=== PATIENT | male | born 1945 | race Caucasian/White ===

== ENCOUNTER 2018-09-23 22:24 | Observation (INO) | payer MEDICARE, BC ==
[2018-09-23 22:52] LABS: ABS Eosinophils 0.1 10^3/ul (0-0.6); ABS Monocytes 0.7 10^3/ul (0-0.8); ABS Neutrophils 2.6 10^3/ul (1.5-7.7); Eosinophil % 1.3 %; Hematocrit 33 % (42-52); Hemoglobin 11.4 g/dL (14.0-18.0); Lymphocyte % 23.3 %; Mean Corpuscular HGB Conc 34 g/dL (31-36); Mean Corpuscular Hemoglobin 34 pg (27-31); Mean Corpuscular Volume 98 fL (80-94); Mean Platelet Volume 9.1 fL (7.4-10.4); Platelet Count 115 10^3/uL (150-450); Red Cell Distribution Width 15 % (10-15); White Blood Count 4.3 10^3/uL (3.5-10.8)
[2018-09-23 22:57] LABS: INR 1.06 (0.82-1.09)
[2018-09-23 23:10] LABS: Albumin 4.1 g/dL (3.2-5.2); Albumin/Globulin Ratio 1.5 (1-3); BUN/Creatinine Ratio 21.7 (8-20); Calcium 9.5 mg/dL (8.6-10.3); EGFR African American 42.5 (>60); EGFR Non-African American 35.1 (>60); Globulin 2.8 g/dL (2-4); Total Bilirubin 0.4 mg/dL (0.2-1.0); Total Protein 6.9 g/dL (6.4-8.9)
[2018-09-23 23:12] LABS: Potassium 5.5 mmol/L (3.5-5.0); Troponin I 0.01 ng/mL (<0.04)
[2018-09-24] MEDS ORDERED: Diazepam SYRINGE* 5 MG/ML 2 ML SYRINGE (10 MG total) IV ONE (01:32)
[2018-09-24] MEDS ORDERED: Aspirin 81 mg CHEW TAB* 81 MG TAB.CHEW PO ONE (01:39)
--- NOTE | 2018-09-24 01:42 | ED ---
HPI Chest Pain - HPI Summary HPI Summary: 73 year old M presents to [facility] with a chief complaint of episodic minor chest pain since 1000 tonight (09/23/18). Patient reports he took a nitroglycerin pill after 1st episode of chest pain which is describes as "gaseous and indigestion" on the left side of his chest. Patient reports that the pain from episode at 1000 went away before nitroglycerin intake and then came again in the waiting room several hours ago which lasted 5 minutes or less in length. Patient reports he had a heart attack in 2010 after which he got 4 stents and that he has a defibrillator since 2010 due to a weak heart. Patient reports neck pain/ stiffness in waiting room. Patient takes baby aspirin every morning but denies use of Plavix. Patients retirement specialist is Dr. Jay. Symptoms aggravated by nothing. Symptoms alleviated by nothing. - History of Current Complaint Chief Complaint: EDChestPainROMI Time Seen by Provider: 09/24/18 01:30 Hx Obtained From: Patient Onset/Duration: Started Days Ago - 1 Timing: Intermittent - 5 minutes, Lasting Minutes - 5 Pain Intensity: 0 Pain Scale Used: 0-10 Numeric Aggravating Factor(s): Nothing Alleviating Factor(s): Nothing Associated Signs and Symptoms: Positive: Other: - positive - neck pain - Allergy/Home Medications Allergies/Adverse Reactions: Allergies Allergy/AdvReac Type Severity Reaction Status Date / Time Penicillins Allergy Intermediate Hives Verified 09/24/18 00:28 PMH/Surg Hx/FS Hx/Imm Hx Endocrine/Hematology History: Denies: Hx Diabetes Cardiovascular History: Denies: Hx Hypertension Respiratory History: Reports: Other Respiratory Problems/Disorders - pt of [place], PFTs showed a "few spots", but no conditions present History: Denies: Hx Renal Disease Musculoskeletal History: Reports: Hx Back Problems Neurological History: Reports: Other Neuro Impairments/Disorders - PAIN CL[facility]IC PT - Cancer History Cancer Type, Location and Year: 1993 years ago NHL, 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 LAMENECTOMY Infectious Disease History: No Infectious Disease History: Denies: Traveled Outside the [place] in Last 30 Days - Family History Known Family History: Positive: Other - colon cancer - Social History Alcohol Use: Rare Alcohol Amount: 1 Substance Use Type: Reports: None Smoking Status (MU): Never Smoked Tobacco Review of Systems Negative: Fever Positive: Chest Pain Musculoskeletal: Other - positive - neck pain All Other Systems Reviewed And Are Negative: Yes Physical Exam - Summary Physical Exam Summary: VITAL SIGNS: Reviewed. GENERAL: Patient is a well-developed and nourished MALE who is lying comfortable in the stretcher. Patient is not in any acute respiratory distress. HEAD AND FACE: No signs of trauma. No ecchymosis, hematomas or skull depressions. No sinus tenderness. EYES: PERRLA, EOMI x 2, No injected conjunctiva, no nystagmus. EARS: Hearing grossly intact. Ear canals and tympanic membranes are within normal limits. MOUTH: Oropharynx within normal limits. NECK: Supple, trachea is midline, no adenopathy, no JVD, no carotid bruit, no c- spine tenderness, neck with full ROM CHEST: Symmetric, no tenderness at palpation LUNGS: Clear to auscultation bilaterally. No wheezing or crackles. CVS: Regular rate and rhythm, S1 and S2 present, no murmurs or gallops appreciated. ABDOMEN: Soft, non-tender. No signs of distention. No rebound no guarding, and no masses palpated. Bowel sounds are normal. EXTREMITIES: FROM in all major joints, no edema, no cyanosis or clubbing. NEURO: Alert and oriented x 3. No acute neurological deficits. Speech is normal and follows commands. SKIN: Dry and warm Triage Information Reviewed: Yes Vital Signs On Initial Exam: Initial Vitals Temp Pulse Resp BP Pulse Ox 97.8 F 68 18 94/58 100 09/23/18 22:27 09/23/18 22:27 09/23/18 22:27 09/23/18 22:27 09/23/18 22:27 Vital Signs Reviewed: Yes Diagnostics - Vital Signs Vital Signs Temp Pulse Resp BP Pulse Ox 09/24/18 01:00 66 19 98 09/24/18 00:51 65 16 99/65 98 09/24/18 00:21 61 17 96/60 99 09/24/18 00:14 98.3 F 62 16 87/59 99 09/23/18 22:27 97.8 F 68 18 94/58 100 - Laboratory Lab Results: Lab Results 09/23/18 09/23/18 09/23/18 Range/Units 22:44 22:44 22:44 WBC 4.3 (3.5-10.8) 10^3/uL RBC 3.40 L (4.18-5.48) 10^6 /uL Hgb 11.4 L (14.0-18.0) g/dL Hct 33 L (42-52) % MCV 98 H (80-94) fL MCH 34 H (27-31) pg MCHC 34 (31-36) g/dL RDW 15 (10-15) % Plt Count 115 L (150-450) 10^3/uL MPV 9.1 (7.4-10.4) fL Neut % (Auto) 59.9 % Lymph % (Auto) 23.3 % [place] % (Auto) 15.2 % Eos % (Auto) 1.3 % Baso % (Auto) 0.3 % Absolute Neuts (auto) 2.6 (1.5-7.7) 10^3/ul Absolute Lymphs (auto) 1.0 (1.0-4.8) 10^3/ul Absolute Monos (auto) 0.7 (0-0.8) 10^3/ul Absolute Eos (auto) 0.1 (0-0.6) 10^3/ul Absolute Basos (auto) 0.0 (0-0.2) 10^3/ul Absolute Nucleated RBC 0.0 10^3/ul Nucleated RBC % 0.0 INR (Anticoag Therapy) 1.06 (0.82-1.09) Sodium 138 (135-145) mmol/L Potassium 5.5 H (3.5-5.0) mmol/L Chloride 105 (101-111) mmol/L Carbon Dioxide 26 (22-32) mmol/L Anion Gap 7 (2-11) mmol/L BUN 41 H (6-24) mg/dL Creatinine 1.89 H (0.67-1.17) mg/dL Est GFR ( Amer) 42.5 (>60) Est GFR (Non-Af Amer) 35.1 (>60) BUN/Creatinine Ratio 21.7 H (8-20) Glucose 113 H (70-100) mg/dL Calcium 9.5 (8.6-10.3) mg/dL Total Bilirubin 0.40 (0.2-1.0) mg/dL AST 60 H (13-39) U/L ALT 45 (7-52) U/L Alkaline Phosphatase 80 (34-104) U/L Troponin I 0.01 (<0.04) ng/mL Total Protein 6.9 (6.4-8.9) g/dL Albumin 4.1 (3.2-5.2) g/dL Globulin 2.8 (2-4) g/dL Albumin/Globulin Ratio 1.5 (1-3) Result Diagrams: 09/23/18 22:44 09/23/18 22:44 Lab Statement: Any lab studies that have been ordered have been reviewed, and results considered in the medical decision making process. - EKG 2225 Cardiac Rate: NL - 63 BPM EKG Rhythm: Sinus Rhythm Summary of EKG Findings: Sinus rhythm at 63 BPM, Normal axis, Normal interval, No ischemic changes. Chest Pain Course/Dx - Course Course Of Treatment: 73 year old M presents to [facility] with a chief complaint of episodic minor chest pain since 1000 tonight (09/23/18). Patient reports he took a nitroglycerin pill after 1st episode of chest pain which is describes as gaseous and indigestion on the left side of his chest. Patient reports that the pain from episode at 1000 went away before nitroglycerin intake and then came again in the waiting room several hours ago which lasted 5 minutes or less in length. Physical exam showed no abnormalities. Blood work shows no abnormalities except for RBC 3.40 L, Hgb 11.4 L, Hct 33 L, MCV 98 H, MCH 34 H, Plt Count 115 L, Potassium 5.5 H, BUN 41 H, Creatinine 1.89 H, BUN/Creatinine Ratio 21.7 H, Glucose 113 H, and AST 60 H. Patient was given aspirin 162 mg PO in the ED. EKG reveals Sinus rhythm at 63 BPM, Normal axis, Normal interval, No ischemic changes. Physician discussed admission with kirk Villedaist, at 0141 who agrees to admission. Patient agrees to admission. - Diagnoses Provider Diagnoses: Chest pain - Provider Notifications Discussed Care Of Patient With: Jun Liao Time Discussed With Above Provider: 01:41 Instructed by Provider To: Other - Physician discussed admission with kirk Villedaist, at 0141 who agrees to admission. Patient agrees to admission. Discharge - Sign-Out/Discharge Documenting (check all that apply): Patient Departure - admit Patient Received Moderate/Deep Sedation with Procedure: No - Discharge Plan Condition: Stable Disposition: ADMITTED TO [facility] Referrals: Florentino Mike MD [Primary Care Provider] - - Attestation Statements Document Initiated by Scribe: Yes Documenting Scribe: Dorothy Prince Provider For Whom Scribe is Documenting (Include Credential): Nazia Adams MD Scribe Attestation: IDemarco Alison Kim, scribed for Nazia Adams MD on 09/24/18 at 0628. Status of Scribe Document: Ready
[2018-09-24 04:56] LABS: Troponin I 0.01 ng/mL (<0.04)
--- NOTE | 2018-09-24 06:04 | HP ---
History of Present Illness - History of Present Illness History of Present Illness: 73yoM with PMHx of CAD s/p stents in 2010 here due to chest pain. Located just left of the midline anterior chest. 4-5/10 only lasted 3-4 minutes. Patient took his nitro but his pain had resolved even before he took it. No SOB, cough, fever. Minimal Abdominal pain but states it is due to the ipad on his belly. Past Medical History CAD s/p stent 2010 CHF with EF 20-25% s/p AICD in 2010 No real HTN or Dyslipidemia only on meds given low EF. 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 Past Surgical History Cardiac stents 2010 defibulator 2010 Exploratory abdomen Appendectomy Bone marrow transplant Lamenectomy Left eye cataract surgery. Allergies Allergy/AdvReac Type Severity Reaction Status Date / Time Penicillins Allergy Intermediate Hives Verified 09/24/18 00:28 Home Medications Medication Instructions Recorded Confirmed Type Aspirin EC TAB* [Ecotrin EC Low 81 mg PO DAILY 07/18/14 09/24/18 History Dose 81 MG*] Carvedilol [Coreg] 3.125 mg PO BID 07/18/14 09/24/18 History Coenzyme Q-10 2 tab PO DAILY 07/18/14 09/24/18 History Lactobacillus Acidophilus 2 cap PO DAILY 07/18/14 09/24/18 History [Probiotic] Magnesium Citrate 400 mg PO BID 07/18/14 09/24/18 History Multivitamin [Multivitamins] 2 cap PO DAILY 07/18/14 09/24/18 History Nitroglycerin [Nitro-Dur] 0.4 mg PO SEE INSTRUCTIONS 07/18/14 09/24/18 History Qnqvo-[id number]-Xrzy Ethyl Esters (NF) 4 gm PO DAILY 07/18/14 09/24/18 History [Lovaza (NF)] Ramipril CAP* [Altace CAP*] 2.5 mg PO DAILY 07/18/14 09/24/18 History S-Adenosylmethionine Sul Tosyl 400 mg PO BID 07/18/14 09/24/18 History [Jose-E] Betaine Hcl With Pepsin 600 mg PO .WITH MEALS 02/13/18 09/24/18 History Cholecalciferol (Vitamin D3) [D 5,000 unit PO DAILY 02/13/18 09/24/18 History 5000] Polyethylene Glycol 3350* 17 gm PO DAILY PRN 02/13/18 09/24/18 History [Miralax*] Rosuvastatin Calcium [Crestor] 20 mg PO DAILY 02/13/18 09/24/18 History Review of Systems - Measurements Intake and Output: Intake and Output Last 24 Hours 09/21/18 09/22/18 09/23/18 09/24/18 06:59 06:59 06:59 06:59 Weight 140 lb - Review of Systems Constitutional Symptoms: Negative: Fever Cardiology: Positive: Chest Pain Negative: Shortness of Breath, Palpitations, Edema Gastroenterology: Positive: Abdominal Pain Negative: Nausea, Vomiting, Constipation, Diarrhea Neurology: Positive: Normal Psychiatry: Positive: Normal Objective Vital Signs - 8 hr 09/23/18 09/24/18 09/24/18 22:27 00:14 00:21 Temperature 97.8 F 98.3 F Pulse Rate 68 62 61 Respiratory 18 16 17 Rate Blood Pressure 94/58 87/59 96/60 (mmHg) O2 Sat by Pulse 100 99 99 Oximetry 09/24/18 09/24/18 09/24/18 00:51 01:00 01:21 Temperature Pulse Rate 65 66 66 Respiratory 16 19 17 Rate Blood Pressure 99/65 87/57 (mmHg) O2 Sat by Pulse 98 98 97 Oximetry 09/24/18 09/24/18 09/24/18 01:51 02:00 02:21 Temperature Pulse Rate 67 67 67 Respiratory 18 17 18 Rate Blood Pressure 93/56 101/60 (mmHg) O2 Sat by Pulse 97 96 97 Oximetry 09/24/18 09/24/18 09/24/18 02:51 03:01 03:29 Temperature Pulse Rate 63 61 65 Respiratory 15 16 17 Rate Blood Pressure 97/62 104/65 (mmHg) O2 Sat by Pulse 98 98 98 Oximetry 09/24/18 09/24/18 09/24/18 03:51 04:00 04:21 Temperature Pulse Rate 62 64 65 Respiratory 15 16 16 Rate Blood Pressure 108/68 107/64 (mmHg) O2 Sat by Pulse 98 98 98 Oximetry 09/24/18 09/24/18 09/24/18 04:51 05:00 05:21 Temperature Pulse Rate 68 65 66 Respiratory 17 21 18 Rate Blood Pressure 111/69 111/69 (mmHg) O2 Sat by Pulse 97 98 98 Oximetry Oxygen Devices in Use Now: None Eyes: No Scleral Icterus, PERRLA Ears/Nose/Mouth/Throat: NL Teeth, Lips, Gums, Clear Oropharnyx, Mucous Membranes Moist Neck: NL Appearance and Movements; NL JVP Respiratory: Clear to Auscultation Cardiovascular: NL Sounds; No Murmurs; No JVD, RRR, No Edema Abdominal: NL Sounds; No Tenderness; No Distention, No Hepatosplenomegaly Extremities: No Edema Skin: No Rash or Ulcers Neurological: Alert and Oriented x 3, NL Sensation, NL Muscle Strength and Tone Nutrition: Taking PO's Result Diagrams: 09/24/18 04:29 09/23/18 22:44 Additional Lab and Data: Lab Results 09/23/18 09/23/18 09/23/18 Range/Units 22:44 22:44 22:44 WBC 4.3 (3.5-10.8) 10^3/uL RBC 3.40 L (4.18-5.48) 10^6 /uL Hgb 11.4 L (14.0-18.0) g/dL Hct 33 L (42-52) % MCV 98 H (80-94) fL MCH 34 H (27-31) pg MCHC 34 (31-36) g/dL RDW 15 (10-15) % Plt Count 115 L (150-450) 10^3/uL MPV 9.1 (7.4-10.4) fL Neut % (Auto) 59.9 % Lymph % (Auto) 23.3 % [place] % (Auto) 15.2 % Eos % (Auto) 1.3 % Baso % (Auto) 0.3 % Absolute Neuts (auto) 2.6 (1.5-7.7) 10^3/ul Absolute Lymphs (auto) 1.0 (1.0-4.8) 10^3/ul Absolute Monos (auto) 0.7 (0-0.8) 10^3/ul Absolute Eos (auto) 0.1 (0-0.6) 10^3/ul Absolute Basos (auto) 0.0 (0-0.2) 10^3/ul Absolute Nucleated RBC 0.0 10^3/ul Nucleated RBC % 0.0 INR (Anticoag Therapy) 1.06 (0.82-1.09) Sodium 138 (135-145) mmol/L Potassium 5.5 H (3.5-5.0) mmol/L Chloride 105 (101-111) mmol/L Carbon Dioxide 26 (22-32) mmol/L Anion Gap 7 (2-11) mmol/L BUN 41 H (6-24) mg/dL Creatinine 1.89 H (0.67-1.17) mg/dL Est GFR ( Amer) 42.5 (>60) Est GFR (Non-Af Amer) 35.1 (>60) BUN/Creatinine Ratio 21.7 H (8-20) Glucose 113 H (70-100) mg/dL Calcium 9.5 (8.6-10.3) mg/dL Total Bilirubin 0.40 (0.2-1.0) mg/dL AST 60 H (13-39) U/L ALT 45 (7-52) U/L Alkaline Phosphatase 80 (34-104) U/L Troponin I 0.01 (<0.04) ng/mL Total Protein 6.9 (6.4-8.9) g/dL Albumin 4.1 (3.2-5.2) g/dL Globulin 2.8 (2-4) g/dL Albumin/Globulin Ratio 1.5 (1-3) EKG Data: Shows sinus rhythm at 63bpm with some ST segment depression in inferior leads however wasn't present in older EKGs from 2010 Assess/Plan/Problems-Billing Assessment: 73yoM with PMHx of CAD s/p stent here due to chest pain r/o ACS. - Patient Problems (1) Chest pain Current Visit: Yes Status: Acute Code(s): R07.9 - CHEST PAIN, UNSPECIFIED SNOMED Code(s): 59858680 Comment: Given history of stent and AICD. Will get Stress test. Patient states he recently had ECHO done at Dr. Lakhani office will try to obtain records. (2) Hyperkalemia Current Visit: Yes Status: Acute Code(s): E87.5 - HYPERKALEMIA SNOMED Code (s): 80604935 Comment: Repeat Labs. If still elevated consider holding MARI inhibitor. (3) Acute kidney injury Current Visit: Yes Status: Acute Code(s): N17.9 - ACUTE KIDNEY FAILURE, UNSPECIFIED SNOMED Code(s): 16691909 Comment: Patient's last known creatinine was elevated as well suggesting CKD stage III but today it appears to be more acute on CKD (4) DVT prophylaxis Current Visit: Yes Status: Acute Code(s): Z29.9 - ENCOUNTER FOR PROPHYLACTIC MEASURES, UNSPECIFIED SNOMED Code(s): 182441112 Comment: SCD
[2018-09-24] MEDS ORDERED: Polyethylene Glycol 3350* 17 GM PACKET PO PRN (06:19)
[2018-09-24 06:28] LABS: ABS Eosinophils 0.1 10^3/ul (0-0.6); ABS Monocytes 0.7 10^3/ul (0-0.8); ABS Neutrophils 2.7 10^3/ul (1.5-7.7); Eosinophil % 1.6 %; Hematocrit 30 % (42-52); Hemoglobin 10.1 g/dL (14.0-18.0); Lymphocyte % 22.4 %; Mean Corpuscular HGB Conc 34 g/dL (31-36); Mean Corpuscular Hemoglobin 33 pg (27-31); Mean Corpuscular Volume 99 fL (80-94); Nucleated Red Blood Cells % 0.1; Platelet Count 101 10^3/uL (150-450); Red Blood Count 3.05 10^6 /uL (4.18-5.48); Red Cell Distribution Width 15 % (10-15); White Blood Count 4.4 10^3/uL (3.5-10.8)
[2018-09-24 06:43] LABS: BUN/Creatinine Ratio 24.2 (8-20); Calcium 9.3 mg/dL (8.6-10.3); EGFR African American 45.6 (>60); EGFR Non-African American 37.7 (>60); HDL Cholesterol 51.4 mg/dL
[2018-09-24 06:44] LABS: Potassium 5.1 mmol/L (3.5-5.0)
[2018-09-24] MEDS ORDERED: Aminophylline IV* 25 MG/ML 10 ML VIAL ONE (08:55)
[2018-09-24] MEDS ORDERED: Regadenoson* 0.4 MG/5 ML SYRINGE ONE (08:55)
[2018-09-24] MEDS ORDERED: CMCS:OMEGA-3 FATTY ACIDS (NF) 1,000 MG CAP PO SCH (09:00)
[2018-09-24] MEDS ORDERED: Ramipril CAP* 2.5 MG PO SCH (09:00)
[2018-09-24] MEDS ORDERED: Heparin VIAL(*) 5000 UNITS/ML VIAL (FIVE THOUSAND) SUBCUT SCH (09:00)
[2018-09-24] MEDS ORDERED: Atorvastatin* 40 MG TAB PO SCH (09:00)
[2018-09-24] MEDS ORDERED: Carvedilol TAB* 3.125 MG PO SCH (09:00)
[2018-09-24] MEDS ORDERED: Aspirin EC TAB* 81 MG TAB.EC PO SCH (09:00)
[2018-09-24] MEDS ORDERED: Cholecalciferol TAB* 1000 UNITS PO SCH (09:00)
[2018-09-24 15:46] VITALS: BP 108/69
--- NOTE | 2018-09-24 18:22 | CONS ---
CC: Dr. Mike, Dr. Jay; Dr. Sears CARDIOLOGY CONSULTATION: DATE OF CONSULT: 09/24/18 PRIMARY KILN FURNITURE SAW TENDER: Dr. Jay. HISTORY OF PRESENT ILLNESS: I was asked by the hospitalist service to see this 73- year-old male pat juma, who presented with 1 minute episode of chest pain after he was watching a movie last night. Th e patient is a pleasant 73-year-old male patient, who does have known history of severe ischemic card iomyopathy. In 2010, he had a STEMI and underwent drug-eluting stents in the LAD and bare-metal sten ts in the RCA, a total of 4 stents, that was in May 2010. He does have known history of severe isc hemic cardiomyopathy. A recent echo done 09/22/18, EF 25% to 30% globally, llsa-ow-gwdmxuhg mitral i nsufficiency, zfja-dq-hftgceoa pulmonary hypertension, and sangg-ig-xbhp tricuspid insufficiency. He did have ICD placement 6 months after his myocardial infarction. He had a consultation at the [facility] in March 2015, nuclear stress test that showed mild ischemia superimposed on foc al apical infarction, which was small. It was an abnormal study at that time. He had no recurrence of chest pain. He is active. He is maintained on his medications, which included statin, MARI inhibi tor, beta-nicole, aspirin, and Lovaza; takes them on a regular basis. He said he was watching a mov ie with his last night. He had unusual spicy dinner according to the patient and he felt 1 patrick te some chest pain. No jaw pain, no shoulder pain, no arm pain, no nausea, no vomiting, no fever, no chills, no shortness of breath, no orthopnea, no syncope, no palpitations, no tachycardia. He said because of his history, he decided to come to the emergency room. He was hospitalized. He was ruled out for myocardial infarction by negative 3 troponins. His EKGs did not show acute ST-T abnormaliti es and he had a nuclear Myoview stress test, which was reported to have ahur-gk-qaawezkw reversible i schemia of the anterior wall and extended to the apex, which I looked at them and was moderate risk. The nuclear test without the attenuation correction artifact did show the reversibility of the apex and the anterior wall. With attenuation correction, it appears that the anterior wall appears to be a fixed defect. The EF was down at 44%. The study was called moderate risk. The patient is chest p ain-free and has been walking in the hallway without any chest pain. He wants to go home. His revie w of all other systems essentially is negative. PAST MEDICAL HISTORY: Includes history of STEMI, stenting of the LAD and RCA in May 2010; severe i schemic cardiomyopathy, EF recently 25% to 30%; mild-to- moderate mitral insufficiency and mild-to-mo derate pulmonary hypertension; history of non-Hodgkin's lymphoma, he is in remission. 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 PAST SURGICAL HISTORY: Stenting after his STEMI, LAD 2 stents, RCA 2 bare-metal stents; Port-A-Cath insertion about 17 years ago. MEDICATIONS: His medications as an inpatient include: 1. Crestor 20 mg daily. 2. Ramipril 2.5 mg daily. 3. Coreg 3.125 mg twice a day. 4. Aspirin 81 mg daily. 5. Lovaza 1 g 2 in the morning, 1 in the evening. 6. Vitamin D3 at 4000 units daily. 7. Magnesium 200 mg 2 of them twice a day. 8. Co Q10 150 mg daily, 2 of them. 9. Hydroxyzine 25 mg daily. ALLERGIES: Allergic to PENICILLIN. FAMILY HISTORY: No family history of premature coronary artery disease. 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 Has no history of smoking. Dr inks wine occasionally. No history of illicit drug use. REVIEW OF SYSTEMS: Review of all other systems essentially is negative. PHYSICAL EXAM: On exam, he is awake, alert, and oriented. He is not in acute distress. His vitals: Blood pressure is 110/70; pulse 62, sinus rhythm; respiratory rate 18. Head and Neck Exam: Normoc ephalic, atraumatic head. Ears, Nose, and Throat: Essentially benign. Neck is supple. JVP is not elevated. No carotid bruits. No masses in the neck are appreciated. Chest: Clear to auscultation. No rales, no wheeze. No added sounds appreciated. Heart: Normal S1, S2. No added sounds. No ga llops, no rubs. Abdomen: Benign. Positive bowel sounds. Extremities: No edema, no cyanosis, no c lubbing. Skin exam is normal. Psych: Normal affect and mood. 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 DIAGNOSTIC STUDIES/LAB DATA: His EKG: Sinus rhythm; Q waves in V1, V2; and borderline ST elevations V1, V2, V3. No acute ST-T changes. His labs: White blood cell 4.4, hemoglobin 10.1, hematocrit 30, platelets 101. Sodium 137, potassium 5.1, chloride 107, total CO2 of 22, BUN 43, creatinine 1.78. Triglycerides 57, cholesterol 132, LDL 69, HDL 51. Troponins 0.01, 0, and then 0.01. IMPRESSION: This is a 73-year-old male patient with: 1. Presentation of 1 minute episode of chest pain while watching a movie, resolved, ruled out for my ocardial infarction by negative troponins. 2. Known history of ST-elevation myocardial infarction in May 2010, status post angioplasty and st enting, drug-eluting stents to the LAD and bare-metal stents to the RCA. 3. Severe ischemic cardiomyopathy with a most recent echo done September 2018, EF 25% to 30%. 4. Status post ICD implantation in 2010. 5. Bgoh-zv-noxzzstp mitral insufficiency. 6. Ocpx-he-irerwiyl tricuspid insufficiency. 7. Hyperlipidemia, on medical treatment. 8. History of Hodgkin's disease, treatment about 17 years ago, in remission. 9. Nuclear Myoview stress test done today was reported as moderate risk with mild- to-moderate rever sible ischemia of the anterior wall extending to the apex. PLAN: The patient is currently chest pain free and he has been. He believes that his symptoms are r elated to a spicy dinner that he had and they were short-lived for 1 minute. He had been walking in the hallway in the hospital without any recurrence of his symptoms. He indicated that he wants to go home as soon as possible and he cannot wait to do so. I indicated that I looked myself at the nucle ar stress test and there is the attenuation correction and without the attenuation correction, there are concerns for reversible ischemia of the anterior wall and the apex; with attenuation correction, actually it showed an old anterior wall myocardial infarction and mostly fixed defect. I had explain ed to the patient that based on his symptoms, presentation, extensive cardiac history, abnormality in his nuclear stress test, severe cardiomyopathy and to further evaluate his coronary anatomy, a defin ite test will be a cardiac catheterization as the one he had in 2010 to evaluate the status of his st ents and further recommendations. Benefits, risks discussed with the patient. He declined. He want s to go home as soon as possible as per his wishes and he indicates that he feels just fine. He does have an upcoming visit with Dr. Jay in the very near future and he wants to discuss all of this wi th his primary carbon cleaner, Dr. Jay. I have indicated to him he needs to continue on his current medications all of them, which he has been taking on a daily basis and if there is any suggestion of recurrent chest pain, shortness of breath, or his symptoms, he needs to come back to the hospital imm ediately and he expressed that he understands this very well. I have discussed this further with the hospitalist service. I answered all his concerns and questions up to his satisfaction. TIME SPENT: More than half of at least 60 to 65 plus minutes was zvbq-ni-ajxp in the [facility], discussing this with the patient and further recommendations. [id number]/[facility] #: [id number]
--- NOTE | 2018-09-24 20:20 | DS ---
CC: Dr. Mike * DISCHARGE SUMMARY: DATE OF ADMISSION: 09/23/18 DATE OF DISCHARGE: 09/24/18 PRIMARY CARE PROVIDER: Dr. Mike. ATTENDING PHYSICIAN: Dr. Biswas * (dictated by Regina Stover NP). PRIMARY DIAGNOSES: 1. Chest pain. 2. Hyperkalemia. 3. Acute kidney injury. CONSULTATIONS WHILE IN THE HOSPITAL: Dr. Sears, Cardiology. STUDIES WHILE IN THE HOSPITAL: 1. Echocardiogram: Sinus rhythm. 2. Nuclear medicine scan: Intermediate risk. Small to moderate area of anterior wall reversible change extending to the apex. Decreased ejection fraction of 40% with suggestion of paradoxical motion at the anterior wall. DISCHARGE HOME MEDICATIONS: Continued home medications: 1. SAMe 400 mg p.o. b.i.d. 2. Crestor 20 mg p.o. daily. 3. Altace 2.5 mg p.o. daily. 4. MiraLAX 17 g p.o. daily p.r.n. 5. Leland-3 4 g p.o. daily. 6. Nitroglycerin 0.4 mg patch q.24 hours. 7. Multivitamin 2 caps p.o. daily. 8. Mag citrate 400 mg p.o. b.i.d. 9. Probiotic 2 caps p.o. daily. 10. Coenzyme Q10 two tabs p.o. daily. 11. Vitamin D3 5000 units p.o. daily. 12. Coreg 3.125 mg p.o. b.i.d. 13. Betaine HCl with pepsin 600 mg p.o. with meals. 14. Aspirin 81 mg p.o. daily. New home medications: No new home medications. Changed home medications: No home medications changed. Discontinued home medications: No home medications discontinued. HISTORY OF PRESENT ILLNESS/HOSPITAL COURSE: Mr. Luna is a 73-year-old male with a past medical history significant for CAD, status post stents in 2010, CHF with an EF of 20% to 25% status post AICD in 2010, non-Hodgkin's lymphoma, basal cell cancer; who presented to the emergency department on 09/13/18 with complaints of chest pain. Please see history and physical dictated by Kim Liao MD for complete summary of events leading up to hospitalization, but in short , the patient had left midline anterior chest pain 4 to 5/10, which lasted 3 to 4 minutes. While in the emergency room, the patient had labs which revealed mild microcytic anemia, normal troponin, mild hyperkalemia. The patient had an EKG which was unremarkable. Given the patient's presentation and history, he was admitted for further evaluation and treatment. During this hospitalization, the patient has been on telemetry. The patient has remained in sinus rhythm. The patient has been in sinus rhythm at [facility]. The patient has been symptom free. The patient's vital signs have been stable. The patient has been afebrile, no tachycardia, O2 saturation within normal limits. BP is mildly hypotensive, but this appears to be the patient's baseline. The patient also underwent a nuclear medicine study this morning, which revealed intermediate risk; therefore, Dr. Sears was consulted. It should be mentioned that the patient had an echo on 09/22/18 as an outpatient, which was also reviewed by Dr. Sears. Dr. Sears met with the patient and reports that he recommended a cardiac cath given the results of the nuclear medicine scan and history. The patient has declined at this time and would prefer to be discharged to follow up with Dr. Jay. The patient is stable for discharge home. Vital Signs: Temp 97.4, HR 66, RR 16, O2 saturation 100% on room air, BP 96/61. REVIEW OF SYSTEMS: The patient denies chest pain, shortness of breath, nausea, vomiting, dizziness. A 14-point review of systems was completed and all were negative. PHYSICAL EXAMINATION: General: Mr. Luna is a 73-year-old male who was sitting in bed. Appears to be in no acute distress. Appears stated age. HEENT : EOMs intact. PERRLA. Oral mucosa is moist without lesion. Posterior pharynx is clear. Neck: Supple. Cardiac: S1, S2 present. Regular rate and rhythm. No murmurs, rubs, or gallops. Respiratory: Lungs are clear to auscultation. Good aeration. No wheezes, rhonchi, or rubs. Abdomen: Soft, nontender. Bowel sounds normoactive. Extremities: No edema. No clubbing or cyanosis. Pedal pulses 2+ bilaterally. Musculo-skeletal: No pain or deformities. Skin: No rashes or lesions. Neuro: Grossly intact. No focal deficits or weakness. DIAGNOSTIC STUDIES/LAB DATA: WBC 4.4, hemoglobin 10.1, hematocrit 30, platelets 101. Chemistry: Sodium 137, potassium 5.1, chloride 107, carbon dioxide 22, BUN 43, creatinine 1.78. Hemoglobin A1c 5.8. Repeat troponins have been 0.00 to 0.01. Triglyceride 57, cholesterol 132, LDL 69, HDL 51.4. DISCHARGE PLAN/FOLLOWUP: 1. Chest pain: The patient is currently chest pain free. The patient has been chest pain free since presentation to the emergency room. The patient had a stress test, which showed intermediate risk. The patient was recommended to have CABG, which he is declining at this time and will follow up with Dr. Jay. The patient has a scheduled appointment for the end of October, but I will encourage the patient to make an appointment next week. It should be mentioned that the patient had a recent echo on 09/22/[address] Jay. The patient has been encouraged to return to the emergency room if he has return of symptoms of chest pain or any other new or concerning symptoms. 2. Hyperkalemia: The patient is mildly hyperkalemic on admission at 5.5. His potassium is now 5.1. I would recommend the patient followup with his primary care for a repeat BMP in 1 week. 3. SELVIN: The patient was noted to have a mildly elevated creatinine on admission at 1.89. His repeat creatinine is 1.78 today. It should be mentioned that his last creatinine in our system was on 03/13/17, which was 1.30. I suspect this slight elevation in creatinine is acute on chronic kidney disease. Also probably secondary to dehydration as his BUN is also elevated. I would encourage the patient to follow up with his primary care and have a repeat BMP next week to assess potassium and his creatinine. 4. CAD, status post stent in 2010: The patient to follow up with Dr. Jay his primary court crier. I would recommend the patient do this next week. 5. Ischemic cardiomyopathy with EF of 20% to 25%, status post AICD in 2010. The patient should continue all of his home medications the same. The patient should follow up with his primary court crier Dr. Jay. 6. Followup: The patient should follow up with his primary care early next week. I would also recommend patient call Dr. Jay and see if he can reschedule his appointment from late October to sooner. 7. Education: The patient was educated on signs and symptoms of new or worsening conditions and when to return to the emergency department. The patient stated understanding. This is a summarized report of a complex medical history and hospital stay. For further details, please see the entire medical record. TIME SPENT: Approximately 35 minutes was spent on this discharge, greater than half that time was spent [id number] with the patient discussing discharge plans and instructions. PLAN: This plan was discussed with my attending, Dr. Biswas, who is in agreement with my plan of care. REGINA STVOER, [place] [id number]/[facility] #: [id number] MAURIZ[place]
== END 2018-09-24 16:39 | disposition home or self-care (01) ==
LOC: ED 22:24 → MEDTELE 09-24 06:16
PROVIDERS: ADMIT Internal Medicine; ATTEND Internal Medicine
DX: R07.9 Chest pain, unspecified (principal); E87.5 Hyperkalemia; N17.9 Acute kidney failure, unspecified; Z79.82 Long term (current) use of aspirin; I25.10 Atherosclerotic heart disease of native coronary artery without angina pectoris; Z95.5 Presence of coronary angioplasty implant and graft; Z88.0 Allergy status to penicillin; Z79.899 Other long term (current) drug therapy; M54.2 Cervicalgia; I25.2 Old myocardial infarction; Z85.72 Personal history of non-Hodgkin lymphomas; E78.5 Hyperlipidemia, unspecified
CPT/HCPCS: 36415; 78452; 80048; 80053; 80061; 83036; 84484; 85025; 85610; 93005; 93017; 99285; A9270-GY; A9502; G0378; J0280; J1644; J2785; J3360